=== PATIENT | female | born 1980 | race Caucasian/White ===

== ENCOUNTER 2020-09-01 02:38 | Emergency (ER) | payer OTHER, SELFPAY ==
[2020-09-01 02:55] VITALS: BP 105/71; PULSE 96; RESP 18; TEMP 36.4; O2SAT 98; BMI 22.4
[2020-09-01 03:01] VITALS: O2SAT 98
--- NOTE | 2020-09-01 03:22 | XRR_ITS ---
PROCEDURE INFORMATION: Exam: XR Chest, 1 View Exam date and time: 09/01/2020 3:01 AM Age: 40 years old Clinical indication: Shortness of breath; Patient HX: Covid symptoms, tested positive 08/30/20; Additional info: SOB TECHNIQUE: Imaging protocol: XR of the chest Views: Frontal portable upright view of the chest. COMPARISON: No relevant prior studies available. FINDINGS: Lungs: Mild pulmonary hyperexpansion. The lungs are otherwise peripherally clear bilaterally. The pulmonary vasculature is normal. Pleural space: No pleural effusion. No pneumothorax. Heart/Mediastinum: The heart is normal in size and contour. Bones/joints: No acute abnormality identified. XR/XR chest 1V portable [id number] IMPRESSION: Mild pulmonary hyperexpansion.
--- NOTE | 2020-09-01 03:29 | W.ED.COVID ---
HPI - COVID General: Chief Complaint: COVID symptoms Stated Complaint: covid symptoms, tested + yesterday Time Seen by Provider: 09/01/20 02:50 Triage information: Has fever, cough or shortness of breath. Exposure to COVID + person last 14 days History of Present Illness: HPI Narrative: 40-year-old female with 10 days of upper respiratory symptoms and some lower respiratory symptoms including shortness of breath. She tested positive for COVID-19 yesterday. She presents tonight after wearing her pulse ox while trying to go to sleep and noticing that it was in the low 80s while falling asleep. When she is awake, it comes up into the upper 90s. She has had fever on and off, with continued cough. Not productive. MD complaint: known COVID positive Prior covid testing: yes, results known COVID 19 common symptoms: positive fever(s), chills, cough, non-productive cough, dyspnea, fatigue and headache(s); negative vomiting COVID 19 other sytmptoms: positive chest pressure; negative chest pain, pleuritic pain or respiratory distress Onset (ago): hour(s) Severity: moderate Pertinent comorbid conditions: diabetes, hypertension, heart disease and COPD/respiratory disease COVID Results: No Data to Display Review of Systems Const: Reports: fever(s), chills and fatigue Card: Denies: chest pain Resp: Reports: dyspnea and non-productive cough GI: Denies: vomiting Neuro: Reports: headache(s) [facility] ED PFSH: Medical History (Updated 09/01/20 @ 05:56 by Gerardo Vital DO) No pertinent past medical history Family History Other Cancer Diabetes Social History (Updated 07/29/20 @ 08:40 by Niurka Cook LPN) Smoking and tobacco status: never smoked Alcohol intake: current Alcohol intake frequency: few times a month Physical Exam Const: COMMON NORMALS: no acute distress, patient oriented x3, healthy appearing and alert GENERAL APPEARANCE: cooperative and well developed HENMT: COMMON NORMALS: normocephalic and Normal external nose present HEAD & SCALP: normocephalic NOSE: Normal external nose present Eye: COMMON NORMALS: Equal, round and reactive pupils present and EOMs intact bilaterally PUPIL: Yes Equal, round and reactive pupils present Chest: COMMONS NORMALS: normal inspection of the chest Resp: COMMON NORMALS: normal respiratory effort, No retractions, No use of accessory muscles and clear to auscultation bilaterally AUSCULTATION: clear to auscultation bilaterally Cardio: COMMON NORMALS: regular rate, regular rhythm and No murmurs present (Cardio) RATE: regular rate RHYTHM: regular rhythm Neuro: COMMON NORMALS: patient oriented x3 SENSORIUM/ORIENTATION: Yes alert Course Vital Signs: Vital signs: Vital Signs Temperature 97.5 F L 09/01/20 02:55 Pulse Rate 87 09/01/20 03:42 Respiratory Rate 18 09/01/20 03:42 Blood Pressure 105/71 09/01/20 02:55 Pulse Oximetry 98 09/01/20 03:42 MDM - COVID MDM Narrative: Medical decision making narrative: 40-year-old female here short of breath. She was concerned as her oxygen saturations were evidently dropping at home to the low 80s while trying to sleep. She has been in the mid to upper 90s here on room air. She is not overly tachypneic. Her blood gas shows normal oxygenation with a slight respiratory alkalosis. Her white blood cell count is 2.1. Hemoglobin 13. Electrolytes are normal chest x-ray appeared normal. D-dimer was significantly elevated as well as some of her other inflammatory markers. CTA of the chest shows patchy groundglass opacities diffusely consistent with COVID-19. There is no pulmonary embolism. She will be allowed home. Because of the early opacities, she will be placed on dexamethasone. Lab Data: Labs: Lab Results 09/01/20 09/01/20 09/01/20 Range/Units 03:34 03:34 03:34 WBC 2.1 L (4.0-10.0) 10^3/ uL RBC 4.39 (4.1-5.3) 10^6/u L Hgb 13.1 (11.5-15.3) g/dL Hct 38.2 (37.0-47.0) % MCV 87.0 (81-99) fL MCH 29.8 (28.0-34.0) pg MCHC 34.3 (30.0-36.0) g/dL RDW 11.6 L (12.1-15.1) % Plt Count 134 (130-400) 10^3/c mm MPV 12.0 H (7.4-10.4) fL Neut % (Auto) 66.8 % Lymph % (Auto) 27.1 % [place] % (Auto) 5.6 % Eos % (Auto) 0.0 % Baso % (Auto) 0.5 % Neut # (Auto) 1.43 L (1.8-7.7) 10^3/u L Lymph # (Auto) 0.6 L (0.8-4.8) 10^3/u L [place] # (Auto) 0.1 L (0.2-0.9) 10^3/u L Eos # (Auto) 0.0 (0.0-0.8) 10^3/u L Baso # (Auto) 0.0 (0.0-0.1) 10^3/u L Nucleated RBC % (a uto) 0 % Nucleated RBCs # 0.0 /100WBC D-Dimer 1.50 H (0-0.59) ug/mIFE U Specimen Type Sample Site ABG pH (7.35-7.45) ABG pCO2 (35-45) mmHg ABG pO2 (80.0-100.0) mmH g ABG HCO3 (22-26) mmol/L ABG Base Excess (-2.0-2.0) mmol/ L Saroj Test Hematocrit (37-47) % Hgb O2 Saturation (95-100) % Carboxyhemoglobin (0.4-20.1) %THgb Methemoglobin (0.4-1.5) % Total Hemoglobin (12-16) g/dL O2 Delivery [employer] Sales Consultant ID Sodium 137 (136-145) mmol/L Potassium 3.6 (3.5-5.1) mmol/L Chloride 102 (98-107) mmol/L Carbon Dioxide 22 (22-29) mmol/L Anion Gap 16.6 (5-19) BUN 9 (6-20) mg/dL Creatinine 0.5 (0.5-0.9) mg/dL GFR Calculation 136.6 H (90-130) mL/min Glucose 153 H (65-115) mg/dL Calculated Osmolal ity 286 (285-295) mOsm/k g Lactic Acid (0.5-2.2) mmol/L Calcium 8.5 (8.5-10.5) mg/dL Total Bilirubin 0.4 (0.15-1.2) mg/dL AST 22 (0-32) U/L ALT 14 (0-33) U/L Alkaline Phosphata se 76 (35-105) IU/L Lactate Dehydrogen ase 242 H (135-214) U/L C-Reactive Protein 13.9 H (0.0-4.9) mg/L Total Protein 6.5 L (6.6-8.7) g/dL Albumin 3.8 (3.5-5.2) g/dL Globulin 2.7 (1.3-4.6) g/dL Procalcitonin 0.06 (0-0.5) ng/mL 09/01/20 09/01/20 Range/Units 03:34 04:20 WBC (4.0-10.0) 10^3/ uL RBC (4.1-5.3) 10^6/u L Hgb (11.5-15.3) g/dL Hct (37.0-47.0) % MCV (81-99) fL MCH (28.0-34.0) pg MCHC (30.0-36.0) g/dL RDW (12.1-15.1) % Plt Count (130-400) 10^3/c mm MPV (7.4-10.4) fL Neut % (Auto) % Lymph % (Auto) % [place] % (Auto) % Eos % (Auto) % Baso % (Auto) % Neut # (Auto) (1.8-7.7) 10^3/u L Lymph # (Auto) (0.8-4.8) 10^3/u L [place] # (Auto) (0.2-0.9) 10^3/u L Eos # (Auto) (0.0-0.8) 10^3/u L Baso # (Auto) (0.0-0.1) 10^3/u L Nucleated RBC % (a uto) % Nucleated RBCs # /100WBC D-Dimer (0-0.59) ug/mIFE U Specimen Type Arterial Sample Site Radial, right ABG pH 7.51 H (7.35-7.45) ABG pCO2 29.2 L (35-45) mmHg ABG pO2 83.1 (80.0-100.0) mmH g ABG HCO3 23.4 (22-26) mmol/L ABG Base Excess 1.2 (-2.0-2.0) mmol/ L Saroj Test Pos Hematocrit 39.5 (37-47) % Hgb O2 Saturation 96.2 (95-100) % Carboxyhemoglobin 0.3 L (0.4-20.1) %THgb Methemoglobin 0.9 (0.4-1.5) % Total Hemoglobin 12.9 (12-16) g/dL O2 Delivery Device room air Solutions Sales Consultant ID ellpe Sodium (136-145) mmol/L Potassium (3.5-5.1) mmol/L Chloride (98-107) mmol/L Carbon Dioxide (22-29) mmol/L Anion Gap (5-19) BUN (6-20) mg/dL Creatinine (0.5-0.9) mg/dL GFR Calculation (90-130) mL/min Glucose (65-115) mg/dL Calculated Osmolal ity (285-295) mOsm/k g Lactic Acid 1.1 (0.5-2.2) mmol/L Calcium (8.5-10.5) mg/dL Total Bilirubin (0.15-1.2) mg/dL AST (0-32) U/L ALT (0-33) U/L Alkaline Phosphata se (35-105) IU/L Lactate Dehydrogen ase (135-214) U/L C-Reactive Protein (0.0-4.9) mg/L Total Protein (6.6-8.7) g/dL Albumin (3.5-5.2) g/dL Globulin (1.3-4.6) g/dL Procalcitonin (0-0.5) ng/mL COVID Results: No Data to Display Discharge Plan Discharge Patient Disposition: Home Clinical Impression: Pneumonia due to 2019 novel coronavirus Condition: Stable Prescriptions: New dexamethasone 6 mg tablet 6 mg PO DAILY Qty: 5 RF: 0 albuterol sulfate 90 mcg/actuation HFA aerosol inhaler 2 inh inhalation Q6H PRN (Reason: shortness of breath or wheezing) Qty: 6.7 RF: 0 Discharge Orders: Discharge ED (Routine); Ordered 09/01/20 Ordered By: Gerardo Vital Referrals: Matthias Wang DO [Primary Care Provider] - 1-3 days Discharge Diet: Advance as tolerated Discharge Activity: Limit activity as instructed Patient Instructions: Viral Pneumonia (ED) Activity Restrictions/Additional Instructions: Return for worsening shortness of breath despite treatment, inability to control fever, vomiting liquids or medications, other concerning symptoms. 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
[2020-09-01 03:42] VITALS: PULSE 87; RESP 18; O2SAT 98
[2020-09-01 03:52] LABS: Basophils % 0.5 %; Hematocrit 38.2 % (37.0-47.0); Hemoglobin 13.1 g/dL (11.5-15.3); Lymphocytes # 0.6 10^3/uL (0.8-4.8); Lymphocytes % 27.1 %; Mean Corpuscular HGB Conc 34.3 g/dL (30.0-36.0); Mean Corpuscular Hemoglobin 29.8 pg (28.0-34.0); Monocytes # 0.1 10^3/uL (0.2-0.9); Monocytes % 5.6 %; Neutrophils # 1.43 10^3/uL (1.8-7.7); Neutrophils % 66.8 %; Nucleated Red Blood Cells % 0 %; Platelet Count 134 10^3/cmm (130-400); Red Blood Count 4.39 10^6/uL (4.1-5.3); Red Cell Distribution Width 11.6 % (12.1-15.1); White Blood Count 2.1 10^3/uL (4.0-10.0)
[2020-09-01 04:14] LABS: Lactic Sepsis W/Reflex 1.1 mmol/L (0.5-2.2)
--- NOTE | 2020-09-01 04:21 | CTR_ITS ---
PROCEDURE INFORMATION: Exam: CT Angiography Chest With Contrast Exam date and time: 09/01/2020 4:54 AM Age: 40 years old Clinical indication: Dyspnea; Patient HX: Covid +; Additional info: SOB TECHNIQUE: Imaging protocol: Computed tomographic angiography of the chest with intravenous contrast. 3D rendering (Not supervised by radiologist): MIP and/or 3D reconstructed images were created by the technologist. Radiation optimization: All CT scans at this facility use at least one of these dose optimization techniques: automated exposure control; mA and/or kV adjustment per patient size (includes targeted exams where dose is matched to clinical indication); or iterative reconstruction. Contrast material: OMNI 350; Contrast volume: 95 ml; Contrast route: INTRAVENOUS (IV); COMPARISON: CR XR chest 1V portable [id number] 09/01/2020 3:24 AM RADIATION DOSE METRICS: Total DLP (mGy-cm): 472.55 FINDINGS: Pulmonary arteries: Normal. No pulmonary emboli. Aorta: Unremarkable. No aortic aneurysm. No aortic dissection. Lungs: There are peripheral patchy ground-glass opacities present within the hemithoraces, findings suggesting a bilateral interstitial pneumonia. Pleural space: Unremarkable. No pneumothorax. No pleural effusion. Heart: Unremarkable. No cardiomegaly. No pericardial effusion. Lymph nodes: Unremarkable. No enlarged lymph nodes. Bones/joints: Unremarkable. No acute fracture. Soft tissues: Unremarkable. CT/CT angio chest PE protcl [id number] IMPRESSION: 1. There is no evidence for pulmonary emboli. 2. Patchy peripheral ground-glass opacities present within the hemithoraces compatible with a bilateral interstitial pneumonia. Commonly reported imaging features of COVID-19 pneumonia are present. Other processes such as influenza pneumonia and organizing pneumonia, as can be seen with drug toxicity and connective tissue disease, can cause a similar imaging pattern. (Reference: Yanick) REFERENCES: Yanick Ordoñez, et al., Radiological Society of [place] Expert Consensus Statement on Reporting Chest CT Findings Related to COVID-19. Endorsed by the Society of Thoracic Radiology, the [place] [employer], and RSNA. Published November 14, 2019. Radiation Dose CTDIVOL = (mGy): DLP = 472.55 (mGy-cm)
[2020-09-01 04:23] LABS: Procalcitonin 0.06 ng/mL (0-0.5)
[2020-09-01 04:25] LABS: ABG PCO2 29.2 mmHg (35-45); ABG PH Result 7.51 (7.35-7.45); Arterial Blood Gas Hematocrit 39.5 % (37-47); Base Excess ABG 1.2 mmol/L (-2.0-2.0); Blood Gas Allen Test Pos; Blood Gas Sample Site Radial, right; Blood Gas Sample Type Arterial; Carboxyhemoglobin 0.3 %THgb (0.4-20.1); HCO3 ABG 23.4 mmol/L (22-26); HGB O2 Sat 96.2 % (95-100); Methemoglobin 0.9 % (0.4-1.5); PO2 ABG 83.1 mmHg (80.0-100.0); Total Hemoglobin 12.9 g/dL (12-16)
[2020-09-01 04:30] LABS: Slide Review Slide Review Perform
[2020-09-01 04:35] LABS: Alanine Aminotransferase 14 U/L (0-33); Albumin Level 3.8 g/dL (3.5-5.2); Alkaline Phosphatase 76 IU/L (35-105); Anion Gap 16.6 (5-19); Aspartate Amino Transferase 22 U/L (0-32); Blood Urea Nitrogen 9 mg/dL (6-20); C Reactive Protein 13.9 mg/L (0.0-4.9); Calcium 8.5 mg/dL (8.5-10.5); Carbon Dioxide 22 mmol/L (22-29); Chloride 102 mmol/L (98-107); Creatinine Clr Calc Pharmacy 138.5831; Globulin 2.7 g/dL (1.3-4.6); Glomerular Filtration Rate 136.6 mL/min (90-130); Glucose 153 mg/dL (65-115); Lactate Dehydrogenase 242 U/L (135-214); Osmolality Calculated 286 mOsm/kg (285-295); Potassium 3.6 mmol/L (3.5-5.1); Sodium 137 mmol/L (136-145); Total Bilirubin 0.4 mg/dL (0.15-1.2); Total Protein 6.5 g/dL (6.6-8.7)
[2020-09-01 04:58] LABS: Oxygen Device room air
[2020-09-01] MEDS: iohexol 350 mg/mL 100 mL Btl IV (04:58)
[2020-09-01] MEDS: dexamethasone 4 mg/mL INJ 8 MG IVP (06:05)
[2020-09-01 06:11] VITALS: BP 110/72; PULSE 85; RESP 18; O2SAT 96
== END 2020-09-01 06:12 | disposition home or self-care (01) ==
PROVIDERS: Emergency Provider Emergency Medicine; PCP Electrodiagnostic Medicine
DX: U07.1 COVID-19 (principal); J12.82 Pneumonia due to coronavirus disease 2019
CPT/HCPCS: 12345; 36600; 71045; 71275; 80053; 82805; 83605; 83615; 84145; 85025; 85378; 86140; 96374; 99283; 99284; J1100; Q9967

== ENCOUNTER 2020-10-06 10:54 | Outpatient (CLI) | payer OTHER, SELFPAY ==
[2020-10-06 11:13] LABS: Basophils % 0.4 %; Eosinophils % 0.2 %; Hematocrit 38.4 % (37.0-47.0); Lymphocytes # 1.5 10^3/uL (0.8-4.8); Mean Corpuscular HGB Conc 33.9 g/dL (30.0-36.0); Mean Corpuscular Hemoglobin 30.1 pg (28.0-34.0); Mean Corpuscular Volume 88.9 fL (81-99); Mean Platelet Volume 11.6 fL (7.4-10.4); Monocytes # 0.4 10^3/uL (0.2-0.9); Monocytes % 4.4 %; Neutrophils # 7.52 10^3/uL (1.8-7.7); Neutrophils % 78.8 %; Nucleated Red Blood Cells % 0 %; Platelet Count 246 10^3/cmm (130-400); Red Blood Count 4.32 10^6/uL (4.1-5.3); Red Cell Distribution Width 12.4 % (12.1-15.1); White Blood Count 9.6 10^3/uL (4.0-10.0)
[2020-10-06 11:30] LABS: Alanine Aminotransferase 10 U/L (0-33); Albumin Level 4.6 g/dL (3.5-5.2); Alkaline Phosphatase 55 IU/L (35-105); Anion Gap 15.4 (5-19); Aspartate Amino Transferase 14 U/L (0-32); Blood Urea Nitrogen 13 mg/dL (6-20); C Reactive Protein 0.3 mg/L (0.0-4.9); Calcium 9.5 mg/dL (8.5-10.5); Carbon Dioxide 24 mmol/L (22-29); Chloride 104 mmol/L (98-107); Globulin 2.1 g/dL (1.3-4.6); Glomerular Filtration Rate 110.7 mL/min (90-130); Glucose 84 mg/dL (65-115); Osmolality Calculated 287 mOsm/kg (285-295); Potassium 4.4 mmol/L (3.5-5.1); Sodium 139 mmol/L (136-145); Total Bilirubin 0.5 mg/dL (0.15-1.2); Total Protein 6.7 g/dL (6.6-8.7)
[2020-10-06 12:03] LABS: Thyroid Stimulating Hormone 3.43 uIU/mL (0.27-4.20)
== END 2020-10-06 10:55 | disposition home or self-care (01) ==
LOC: LAB 10:55
PROVIDERS: PCP Electrodiagnostic Medicine; Visit Provider Electrodiagnostic Medicine
DX: R07.9 Chest pain, unspecified (principal); R06.02 Shortness of breath; U07.1 COVID-19
CPT/HCPCS: 80053; 84443; 85025; 86140

== ENCOUNTER 2020-12-19 11:24 | Outpatient (CLI) | payer BC, MEDICAID, SELFPAY ==
--- NOTE | 2020-12-19 11:31 | US_ITS ---
WS: [id number] LIMITED OBSTETRICAL ULTRASOUND HISTORY: COMPARISON: None available. Presentation: Breech. Cervix: Closed and normal length. Placenta: Posterior, no previa or abruption. Grade: 0 HEART: FHR of 131 BPM. measurements: BPD = 3.0 cm = 15w4d HC = 11.4 cm = 15w4d AC = 9.3 cm = 15w3d FL = 1.9 cm = 15w4d EFW: 128 g; AGA by ultrasound: 15w4d WHITNEY by ultrasound: 06/08/2021 US/US OB <= 14 weeks fetus [id number] IMPRESSION: 1. Single intrauterine gestation of 15 weeks 4 days with an EDC of 06/08/2021. 2. Posterior placenta.
== END 2020-12-19 11:25 | disposition home or self-care (01) ==
LOC: US 11:25
PROVIDERS: PCP Electrodiagnostic Medicine; Visit Provider Electrodiagnostic Medicine
DX: Z34.92 Encounter for supervision of normal pregnancy, unspecified, second trimester (principal); Z3A.15 15 weeks gestation of pregnancy
CPT/HCPCS: 76801

== ENCOUNTER → 2020-12-26 09:19 | Outpatient (BNVA) | payer BC, MEDICAID, SELFPAY | PROVIDERS: PCP Electrodiagnostic Medicine; Visit Provider Nurse Practitioner Women's Health | DX: O09.522 Supervision of elderly multigravida, second trimester (principal); Z87.59 Personal history of other complications of pregnancy, childbirth and the puerperium; I86.3 Vulval varices | CPT/HCPCS: 81000 ==

== ENCOUNTER → 2021-01-02 13:53 | Outpatient (BNVA) | payer BC, MEDICAID, SELFPAY | PROVIDERS: PCP Electrodiagnostic Medicine; Visit Provider Obstetrics & Gynecology | DX: O09.522 Supervision of elderly multigravida, second trimester (principal); Z87.59 Personal history of other complications of pregnancy, childbirth and the puerperium; I86.3 Vulval varices | CPT/HCPCS: 80307; 81000; 82950; 85027; 86592; 86762; 86803; 86850; 86900; 87086; 87340; 87491; 87591; 87806; 88175 ==

== ENCOUNTER → 2021-01-22 14:35 | Outpatient (BNVA) | payer BC, MEDICAID, SELFPAY | PROVIDERS: PCP Electrodiagnostic Medicine; Visit Provider Obstetrics & Gynecology | DX: Z34.92 Encounter for supervision of normal pregnancy, unspecified, second trimester (principal); Z3A.20 20 weeks gestation of pregnancy | CPT/HCPCS: 76805 ==

== ENCOUNTER → 2021-01-27 10:13 | Outpatient (BNVA) | payer BC, MEDICAID, SELFPAY | PROVIDERS: PCP Electrodiagnostic Medicine; Visit Provider Obstetrics & Gynecology | DX: Z34.80 Encounter for supervision of other normal pregnancy, unspecified trimester (principal) | CPT/HCPCS: 81000 ==

== ENCOUNTER → 2021-02-24 09:55 | Outpatient (BNVA) | payer BC, MEDICAID, SELFPAY | PROVIDERS: PCP Electrodiagnostic Medicine; Visit Provider Nurse Practitioner Women's Health | DX: O09.522 Supervision of elderly multigravida, second trimester (principal); Z87.59 Personal history of other complications of pregnancy, childbirth and the puerperium; Z3A.00 Weeks of gestation of pregnancy not specified | CPT/HCPCS: 81000; 82950 ==

== ENCOUNTER → 2021-03-17 09:51 | Outpatient (BNVA) | payer BC, MEDICAID, SELFPAY | PROVIDERS: PCP Electrodiagnostic Medicine; Visit Provider Obstetrics & Gynecology | DX: O09.522 Supervision of elderly multigravida, second trimester (principal); I86.3 Vulval varices; Z87.59 Personal history of other complications of pregnancy, childbirth and the puerperium | CPT/HCPCS: 81000; 85025 ==

== ENCOUNTER → 2021-03-31 10:28 | Outpatient (BNVA) | payer BC, MEDICAID, SELFPAY | PROVIDERS: PCP Electrodiagnostic Medicine; Visit Provider Obstetrics & Gynecology | DX: Z34.80 Encounter for supervision of other normal pregnancy, unspecified trimester (principal) | CPT/HCPCS: 81000 ==

== ENCOUNTER → 2021-04-14 09:16 | Outpatient (BNVA) | payer BC, MEDICAID, SELFPAY | PROVIDERS: PCP Electrodiagnostic Medicine; Visit Provider Obstetrics & Gynecology | DX: Z34.80 Encounter for supervision of other normal pregnancy, unspecified trimester (principal) | CPT/HCPCS: 81000 ==

== ENCOUNTER → 2021-05-01 15:54 | Outpatient (BNVA) | payer BC, MEDICAID, SELFPAY | PROVIDERS: PCP Electrodiagnostic Medicine; Visit Provider Obstetrics & Gynecology | DX: Z34.80 Encounter for supervision of other normal pregnancy, unspecified trimester (principal) | CPT/HCPCS: 81000 ==

== ENCOUNTER → 2021-05-12 10:49 | Outpatient (BNVA) | payer BC, MEDICAID, SELFPAY | PROVIDERS: PCP Electrodiagnostic Medicine; Visit Provider Obstetrics & Gynecology | DX: Z34.80 Encounter for supervision of other normal pregnancy, unspecified trimester (principal) | CPT/HCPCS: 81000; 87081 ==

== ENCOUNTER → 2021-05-18 11:18 | Outpatient (BNVA) | payer BC, MEDICAID, SELFPAY | PROVIDERS: PCP Electrodiagnostic Medicine; Visit Provider Obstetrics & Gynecology | DX: Z34.80 Encounter for supervision of other normal pregnancy, unspecified trimester (principal) | CPT/HCPCS: 81000 ==

== ENCOUNTER → 2021-05-25 11:04 | Outpatient (BNVA) | payer BC, MEDICAID, SELFPAY | PROVIDERS: PCP Electrodiagnostic Medicine; Visit Provider Obstetrics & Gynecology | DX: Z34.80 Encounter for supervision of other normal pregnancy, unspecified trimester (principal) | CPT/HCPCS: 81000 ==

== ENCOUNTER → 2021-06-01 11:00 | Outpatient (BNVA) | payer BC, MEDICAID, SELFPAY | PROVIDERS: PCP Electrodiagnostic Medicine; Visit Provider Obstetrics & Gynecology | DX: Z34.80 Encounter for supervision of other normal pregnancy, unspecified trimester (principal) | CPT/HCPCS: 81000 ==

== ENCOUNTER → 2021-06-08 11:04 | Outpatient (BNVA) | payer BC, MEDICAID, SELFPAY | PROVIDERS: PCP Electrodiagnostic Medicine; Visit Provider Obstetrics & Gynecology | DX: O48.0 Post-term pregnancy (principal); I86.3 Vulval varices; Z87.59 Personal history of other complications of pregnancy, childbirth and the puerperium; O09.522 Supervision of elderly multigravida, second trimester; O40.3XX0 Polyhydramnios, third trimester, not applicable or unspecified | CPT/HCPCS: 81000; 87635 ==

== ENCOUNTER 2021-06-12 16:41 | Inpatient (IN) | payer BC, MEDICAID, SELFPAY ==
[2021-06-12] VITALS (14 sets, daily range): BP systolic 93–120; BP diastolic 51–76; PULSE 67–81; TEMP 37; BMI 31.7
[2021-06-12 17:43] LABS: Basophils % 0.3 %; Eosinophils # 0.1 10^3/uL (0.0-0.8); Hematocrit 37.5 % (37.0-47.0); Hemoglobin 12.8 g/dL (11.5-15.3); Lymphocytes % 25.5 %; Mean Corpuscular HGB Conc 34.1 g/dL (30.0-36.0); Mean Corpuscular Hemoglobin 30.8 pg (28.0-34.0); Mean Corpuscular Volume 90.1 fl (81-99); Mean Platelet Volume 13.1 fL (7.4-10.4); Monocytes # 0.5 10^3/uL (0.2-0.9); Monocytes % 6.4 %; Neutrophils # 5.07 10^3/uL (1.8-7.7); Neutrophils % 66.4 %; Nucleated Red Blood Cells % 0 %; Platelet Count 140 10^3/cmm (130-400); Red Blood Count 4.16 10^6/uL (4.1-5.3); Red Cell Distribution Width 12.8 % (12.1-15.1); White Blood Count 7.6 10^3/uL (4.0-10.0)
[2021-06-12] MEDS: dextrose 5%-lactated ringers 1,000 ML 125 ML IV (18:07)
--- NOTE | 2021-06-12 18:15 | PM.OPHPUD ---
Labor & Delivery H&P Update Date of Procedure: June 12, 2021 Date H&P Performed: 06/12/21 H&P update information: I have reviewed H&P completed within last 30 days, I have examined patient prior to procedure and No changes to prior documentation Admission Diagnosis:
--- NOTE | 2021-06-12 18:16 | P.PN_ITS ---
Subjective Subjective: Interval history: Mrs. Stafford 41 y/o female at 40+6 weeks with polyhydramnios, breech presentation. Admited for external cephalic version and induction. Vitals/I&O/Wt Last Vital Signs Temp 98.6 F 06/12/21 17:04 Pulse 68 06/12/21 17:58 BP 116/63 06/12/21 17:58 Weight last 48 hrs Weight 83.915 kg Physical Exam Narrative: EXAM NARRATIVE: GA: Alert and oriented ?3. Lungs: Clear to auscultation bilaterally. Heart: Regular rhythm and rate. Abdomen: Gravid, full the height equals dates, nontender. MARKETING PR INTERN: SVE; dilation: 4 cm, effacement: 60%, station: -4, presentation: vx, membranes: IM. Extremities: no edema, no cyanosis, no calves pain. heart tracing: Basal rate: 140's bpm, Variability: Moderate, Accelerations: Present, Decelerations: Absent, Contraction: q3min. NST reactive. Data : 06/12/21 17:10 A&P Assessment and plan (1) Term : Mrs. Stafford and were counseled regarding breech presentation noted on the ultrasound during biophysical profile performed earlier today. She was also counseled regarding external cephalic version vs delivery. She elected for external cephalic version. She was counseled external cephalic version is a simple, non-invasive procedure performed when a fetus is not positioned optimally for vaginal delivery. An induction to oxytocin recommended to maximize the chance that the repositioned fetus will not flip back to its original position. Risks include, but are not limited to: Infection, bleeding, swelling, scarring, or pain at the IV insertion site. Discomfort as the baby is being rotated. Damage to the fetus or surrounding area. The fetus may revert to its original position or version may not be successful. Labor caused by rupture of the membranes. Emergency delivery due to distress. She refers she does not want have a section and signed the informed consent. She was informed an ultrasound examination will be performed to confirm the position of the baby and that the amount of fluid around the baby is such that ECV is as safe as possible and a recording of the baby's heart rate, an injection to relax the muscle of the womb may be given, making it easier to turn the baby if needed. The patient was placed in the supine position, an NST was obtained and reactive. The abdomen was liberally coated with ultrasonic gel in order to decrease friction and lessen the chances of an overvigorous manipulation. Gentle disengagement performed. A Forward Roll was performed: Disengage the breech. The breech should be disengaged and simultaneously pushed upward, gently guiding it vertex toward the pelvis. The forward roll completed. Status: Acute (2) Breech presentation: Successful external version. Status: Acute (3) Polyhydramnios affecting in third trimester: Status: Acute Attestations Medical Necessity Statement*: In my professional opinion per admitting diagnosis. Coding Level of Care Code Acute Hand Bender for [facility] Fwd Diagnoses Term Z34.90 Breech presentation O32.1XX0 Polyhydramnios affecting in third trimester O40.3XX0
[2021-06-12] MEDS: oxytocin 30 UNIT/500 ML BAG IV (18:30)
--- NOTE | 2021-06-12 21:35 | USR_ITS ---
PROCEDURE INFORMATION: Exam: US , Limited Exam date and time: 06/12/2021 9:35 PM Age: 41 years old Clinical indication: Screening exam; Routine US, uterus; Additional info: presentation TECHNIQUE: Imaging protocol: Real-time ultrasound of the maternal uterus with image documentation. Exam focused on the clinical indication. COMPARISON: US OB BPP w NST CC 06/12/2021 12:31 PM FINDINGS: Gestation: Single intrauterine gestation. presentation: Cephalic presentation. heart rate: heart rate is 129 bpm. Placenta: Anterior placenta. No placenta previa. No placental abruption. US/US OB limited [id number] IMPRESSION: Single live cephalic presentation intrauterine gestation. Radiation Dose CTDIVOL = (mGy): DLP = (mGy-cm)
[2021-06-13] VITALS (28 sets, daily range): BP systolic 85–120; BP diastolic 50–78; PULSE 60–93; RESP 16–18; TEMP 36.5–37.2; O2SAT 95
[2021-06-13] MEDS: dextrose 5%-lactated ringers 1,000 ML 125 ML IV (02:08)
[2021-06-13] MEDS: lidocaine 2% INJ 20 mL INJECTION (14:00)
--- NOTE | 2021-06-13 14:14 | PM.DELIVERY ---
Delivery Note: Date of delivery: June 13, 2021 Pre-delivery diagnoses: iup at 41 weeks. cephalic presentation Post-delivery diagnoses: same-delivered Procedure: Op report anesthesia: None Delivering Physician: edward Estimated blood loss (mL): 20 Findings: Large term male in the cephalic presentation Pre-Delivery Course: The patient was admitted for external cephalic version and induction. The version was successful and pitocin was started. The patient received pitocin overnight and in the morning, she was dilated to 4 cm but had 80% efacement and the head was well applied to the cervix. She had AROM and the pitocin was stopped. The amniotic fluid slowly leaked and she was allowed to labor naturally. She had complete cervical dilation and began pushing Delivery: The patient had complete cervical dilation and began to push. The head delivered in the ANTOLIN position over an intact perineum under no anesthesia. The head was large and I immediately moved to deliver the shoulders and body. They delivered atraumatically. The baby was placed onto the mother's abdomen. The cord was clamped and cut. The placenta delivered spontaneously. It was inspected and found to be intact. Inspection of the perineum revealed a 1 cm second-degree laceration. This was repaired in the usual fashion.. Estimated blood loss 20 mL. Apgars on baby were 8 at 1 minute and 9 at 5 minutes. Weight of baby is ending. Mother and baby were bonding. Mother and baby were stable post delivery. A&P Assessment and plan (1) Term : Status: Acute (2) Breech presentation: Status: Acute (3) Polyhydramnios affecting in third trimester: Status: Acute Coding Level of Care Code Acute Home Worker for Chg Fwd Diagnoses Term Z34.90 Breech presentation O32.1XX0 Polyhydramnios affecting in third trimester O40.3XX0
[2021-06-13] MEDS: docusate sodium 100 mg Capsule PO (18:38)
[2021-06-13] MEDS: benzocaine-menthol 78 gm Canister 1 SPRAY TOPICAL (18:38)
[2021-06-13] MEDS: ibuprofen 800 mg tablet PO (21:18)
[2021-06-14] VITALS: BP 101/64; PULSE 80; RESP 16; TEMP 36.7
[2021-06-14 05:20] VITALS: BP 95/58; PULSE 90; RESP 16
--- NOTE | 2021-06-14 05:30 | PM.DCS ---
Discharge Providers Date of Admission: 06/12/21 16:41 Date of Discharge: June 14, 2021 Attending Provider at Admission: Benny Sandoval MD Attending Provider at Discharge: Benny Sandoval MD Primary Care Provider: Matthias Wang DO Diagnoses at Discharge Discharge Diagnosis (1) Term : Status: Resolved (2) Breech presentation: Status: Resolved (3) Polyhydramnios affecting in third trimester: Status: Resolved (4) state: Status: Acute Reason for Visit Reason for Visit: VERSION Hospital Course Hospital Course The patient was admitted for external cephalic version. The version was successful. She had induction after that. She had spontaneous delivery of a term male . She did well post and requested discharge on post day #1 Physical Exam Const: COMMON NORMALS: no acute distress, average body habitus, patient oriented x3, no limitations, healthy appearing and alert GENERAL APPEARANCE: cooperative, comfortable, well kempt and well developed ORIENTATION/CONSCIOUSNESS: Yes awake, Yes oriented to person, Yes oriented to place and Yes oriented to time Resp: COMMON NORMALS: normal respiratory effort EFFORT & INSPECTION: Yes able to speak in complete sentences GI: COMMON NORMALS: Soft to palpation and non-tender PALPATION: Yes Soft to palpation Extremity: COMMON NORMALS: no calf tenderness Neuro: COMMON NORMALS: patient oriented x3 SENSORIUM/ORIENTATION: Yes alert, Yes oriented to person, Yes oriented to place and Yes oriented to time Psych: APPEARANCE: Yes well kempt Discharge Data Data Completed and Pending: Completed Studies During Hospitalization Category Date Time Status US OB limited [id number] Routine Ultrasound 06/12/21 21:35 Completed Pending at discharge Category Date Time Status Hemagram Timed Lab 06/14/21 05:29 Ordered Vitals: Last Vital Signs Temp 98.0 F 06/13/21 17:00 Pulse 93 06/13/21 18:00 Resp 16 06/13/21 18:00 BP 106/71 06/13/21 18:00 Pulse Ox 95 06/13/21 16:30 Discharge Plan Discharge Patient Disposition: Home Condition: Stable Prescriptions: Continued prenat.vits,kacey,[id number] Tablet 1 tab PO DAILY RF: 0 aspirin 81 mg tablet,chewable 81 mg PO DAILY RF: 0 Discharge Orders: Discharge Order (Routine); Ordered 06/14/21 Ordered By: Shawnee Soares Referrals: Benny Sandoval MD [Physician] - 6 Weeks Patient Instructions: Depression (DC), Expression, Collection and Storage of Breast Milk (DC), Bleeding (DC), Preeclampsia and Eclampsia After Delivery (GEN), OB Discharge Report, OB Food/Drug Interaction Guide, Opioid Safety, OB Home Care, OB Vaginal Deliveries - [facility] Discharge Attestations Time Spent in Discharge Care*: less than 30 min Quality Metrics Clinical Quality Measures During this hospital stay, did patient experience: None Coding Level of Care Code Acute Chg FW DC note Exam Expanded Problem Focused Diagnoses Term Z34.90 Breech presentation O32.1XX0 Polyhydramnios affecting in third trimester O40.3XX0 state Z39.2
[2021-06-14 06:00] LABS: Hematocrit 36.2 % (37.0-47.0); Hemoglobin 12.2 g/dL (11.5-15.3); Mean Corpuscular HGB Conc 33.7 g/dL (30.0-36.0); Mean Corpuscular Volume 92.1 fl (81-99); Mean Platelet Volume 12.7 fL (7.4-10.4); Platelet Count 120 10^3/cmm (130-400); Red Blood Count 3.93 10^6/uL (4.1-5.3); White Blood Count 13.2 10^3/uL (4.0-10.0)
[2021-06-14] MEDS: ibuprofen 800 mg tablet PO (08:30)
[2021-06-14] MEDS: prenatal vitamin Capsule 1 CAP PO (08:30)
[2021-06-14] MEDS: docusate sodium 100 mg Capsule PO (08:30)
[2021-06-14 08:39] VITALS: BP 103/66; PULSE 73; RESP 14; TEMP 36.8; O2SAT 96
[2021-06-14 15:55] VITALS: BP 119/74; PULSE 63; RESP 16; TEMP 36.8; O2SAT 95
== END 2021-06-14 16:00 | disposition home or self-care (01) | DRG 806 ==
LOC: OPOB 16:48 → OBGYN 16:49 → OPOB 06-13 09:38 → OBGYN 06-13 09:38
PROVIDERS: Obstetrics & Gynecology; Admitting Provider Obstetrics & Gynecology; PCP Electrodiagnostic Medicine; Visit Provider Obstetrics & Gynecology
DX: O41.03X0 Oligohydramnios, third trimester, not applicable or unspecified (principal); O87.8 Other venous complications in the puerperium; Z37.0 Single live birth; O32.1XX0 Maternal care for breech presentation, not applicable or unspecified; O70.1 Second degree perineal laceration during delivery; Z3A.40 40 weeks gestation of pregnancy
CPT/HCPCS: 36415; 59025; 59409; 59412; 76815; 81000; 85025; 85027

== ENCOUNTER 2021-08-10 09:23 | Emergency (ER) | payer BC, MEDICAID, SELFPAY ==
[2021-08-10 09:41] VITALS: BP 122/81; PULSE 77; RESP 16; TEMP 36.7; O2SAT 98; BMI 25.7
--- NOTE | 2021-08-10 10:03 | ECG_ITS ---
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
--- NOTE | 2021-08-10 10:09 | ED_ITS ---
HPI - Arrhythmia/Palpitations General: Chief Complaint: Arrhythmia/Palpitations Stated Complaint: dizziness, gretchen sensation is arm, SOB Time Seen by Provider: 08/10/21 09:45 History of Present Illness: HPI narrative: 41-year-old female presents emergency room complaining of shortness of breath and palpitations. This began overnight states she woke up feeling dizzy lightheaded she did have numbness and tingling in both arms intermittently. Had a similar episode a couple of days ago it seemed to resolve on its own. She is not on any prescription medications that she is not been taking any regular ppyi-[id number]-[id number] medication she does take an 81 mg aspirin daily and vitamins neither of those are new. She has no history of arrhythmias. She is not use large amounts of caffeine energy drinks etc. MD complaint: rapid heart beat and palpitations Onset (ago): hour(s) Severity: mild Associated symptoms: Reports anxiety; Deny cough, diaphoresis, muscle cramps, nausea, paresthesias, pre-syncope, sense of impending doom, short of breath, syncope or vomiting Review of Systems Const: Denies: diaphoresis ENMT: Denies: throat pain, ear or mastoid pain, nasal discharge or nasal congestion Card: Denies: syncope or pre-syncope Resp: Denies: dyspnea, productive cough or non-productive cough GI: Denies: nausea or vomiting : Denies: flank pain, difficulty voiding, dysuria, urinary frequency or urinary urgency Musc: Denies: muscle cramps Skin/Breast: Denies: rash or pruritus Psych: Reports: anxiety [facility] ED PFSH: Medical History No pertinent past medical history Denies diabetes, asthma, hypertension, seizures, DVT/PE PCP: Bebeto Wang Pneumonia due to 2019 novel coronavirus Surgical History History of dental surgery Family History Family/Other Breast cancer, Onset Age: 65 Paternal Aunt Mother Hypertension Diabetes Grandfather Cancer Maternal and Paternal--prostate cancer Denies family history of Ovarian cancer Heart disease Hypercholesteremia Uterine cancer Thyroid disease Stroke Social History (Reviewed 08/10/21 @ 10:10 by JAIDEN Marquez Smoking and tobacco status: never smoked Alcohol intake: former Former alcohol use details: prior to Physical Exam Const: COMMON NORMALS: no acute distress GENERAL APPEARANCE: cooperative and comfortable ORIENTATION/CONSCIOUSNESS: Yes awake, Yes oriented to person, Yes oriented to place and Yes oriented to time HENMT: COMMON NORMALS: normocephalic, atraumatic and hearing grossly normal bilaterally HEAD & SCALP: normocephalic and atraumatic Neck/C-Spine: COMMON NORMALS: no JVD Resp: COMMON NORMALS: normal respiratory effort, No retractions, No use of accessory muscles and clear to auscultation bilaterally AUSCULTATION: clear to auscultation bilaterally Cardio: COMMON NORMALS: no JVD, regular rate, regular rhythm and No murmurs present (Cardio) RATE: regular rate RHYTHM: regular rhythm GI: COMMON NORMALS: Soft to palpation and No hepatosplenomegaly present AUSCULTATION: Yes normoactive bowel sounds PALPATION: Yes Soft to palpation, No Tenderness to palpation present (GI), No Guarding due to palpation present (GI) and Yes No hepatosplenomegaly present Extremity: COMMON NORMALS: normal to inspection, capillary refill normal, no clubbing, cyanosis or edema, no calf tenderness and no pedal edema Neuro: SENSORIUM/ORIENTATION: Yes oriented to person, Yes oriented to place and Yes oriented to time Skin: COMMON NORMALS: no rashes or lesions noted GENERAL SKIN EXAM: no rashes or lesions noted Course Vital Signs: Vital signs: Vital Signs Temperature 98.1 F 08/10/21 09:41 Pulse Rate 77 08/10/21 09:41 Respiratory Rate 16 08/10/21 09:41 Blood Pressure 122/81 08/10/21 09:41 Pulse Oximetry 98 08/10/21 09:41 MDM - Arrhythmia/Palpitations MDM Narrative: Medical decision making narrative: Patient palpitations this time but no findings EKG lab and x-ray reviewed. Discussed with patient will discharge her home on same medications for now avoid stimulants such as caffeine nicotine energy drinks etc. We will set her up for a Holter monitor if she has any recurrence recurrence or worsening or changes symptoms return to emergency room Lab Data: Labs: Lab Results 08/10/21 08/10/21 10:51 10:51 WBC 6.3 10^3/uL 10^3/ uL (4.0-10.0) RBC 4.97 10^6/uL 10^6 /uL (4.1-5.3) Hgb 14.7 g/dL g/dL (11.5-15.3) Hct 43.3 % % (37.0-47.0) MCV 87.1 fl fl (81-99) MCH 29.6 pg pg (28.0-34.0) MCHC 33.9 g/dL g/dL (30.0-36.0) RDW 11.4 % L % (12.1-15.1) Plt Count 220 10^3/cmm 10^3 /cmm (130-400) MPV 11.4 fL H fL (7.4-10.4) Neut % (Auto) 66.5 % % Lymph % (Auto) 27.2 % % [place] % (Auto) 4.9 % % Eos % (Auto) 0.9 % % Baso % (Auto) 0.3 % % Neut # (Auto) 4.21 10^3/uL 10^3 /uL (1.8-7.7) Lymph # (Auto) 1.7 10^3/uL 10^3/ uL (0.8-4.8) [place] # (Auto) 0.3 10^3/uL 10^3/ uL (0.2-0.9) Eos # (Auto) 0.1 10^3/uL 10^3/ uL (0.0-0.8) Baso # (Auto) 0.0 10^3/uL 10^3/ uL (0.0-0.1) Nucleated RBC % (a uto) 0 % % Nucleated RBCs # 0.0 /100WBC /100W BC Sodium 141 mmol/L mmol/L (136-145) Potassium 4.6 mmol/L mmol/L (3.5-5.1) Chloride 103 mmol/L mmol/L (98-107) Carbon Dioxide 25 mmol/L mmol/L (22-29) Anion Gap 17.6 (5-19) BUN 15 mg/dL mg/dL (6-20) Creatinine 0.7 mg/dL mg/dL (0.5-0.9) GFR Calculation 92.2 mL/min mL/mi n (90-130) Glucose 98 mg/dL mg/dL (65-115) Calculated Osmolal ity 293 mOsm/kg mOsm/ kg (285-295) Calcium 9.2 mg/dL mg/dL (8.5-10.5) Discharge Plan Discharge Patient Disposition: Home Clinical Impression: Palpitations Condition: Stable Prescriptions: No Action prenat.vits,kacey,wml-unhc-lfyll Tablet 1 tab PO DAILY RF: 0 aspirin [Adult Aspirin Regimen] 81 mg tablet,delayed release (DR/EC) 81 mg PO DAILY RF: 0 Discharge Orders: Discharge ED (Routine); Ordered 08/10/21 Ordered By: Link Garces Referrals: Matthias Wang DO [Primary Care Provider] - Patient Instructions: Opioid Safety Activity Restrictions/Additional Instructions: change release manager will make arrangements for you to have a 48-hour Holter monitor Coding Level of Care Code ED [facility] Caretaker for Aleksey Fwd Exam Comprehensive
[2021-08-10 11:12] LABS: Basophils % 0.3 %; Eosinophils # 0.1 10^3/uL (0.0-0.8); Eosinophils % 0.9 %; Hematocrit 43.3 % (37.0-47.0); Hemoglobin 14.7 g/dL (11.5-15.3); Lymphocytes # 1.7 10^3/uL (0.8-4.8); Lymphocytes % 27.2 %; Mean Corpuscular HGB Conc 33.9 g/dL (30.0-36.0); Mean Corpuscular Hemoglobin 29.6 pg (28.0-34.0); Mean Corpuscular Volume 87.1 fl (81-99); Mean Platelet Volume 11.4 fL (7.4-10.4); Monocytes # 0.3 10^3/uL (0.2-0.9); Monocytes % 4.9 %; Neutrophils # 4.21 10^3/uL (1.8-7.7); Neutrophils % 66.5 %; Nucleated Red Blood Cells % 0 %; Platelet Count 220 10^3/cmm (130-400); Red Blood Count 4.97 10^6/uL (4.1-5.3); Red Cell Distribution Width 11.4 % (12.1-15.1); White Blood Count 6.3 10^3/uL (4.0-10.0)
[2021-08-10 11:37] LABS: Anion Gap 17.6 (5-19); Blood Urea Nitrogen 15 mg/dL (6-20); Calcium 9.2 mg/dL (8.5-10.5); Carbon Dioxide 25 mmol/L (22-29); Chloride 103 mmol/L (98-107); Glomerular Filtration Rate 92.2 mL/min (90-130); Glucose 98 mg/dL (65-115); Osmolality Calculated 293 mOsm/kg (285-295); Potassium 4.6 mmol/L (3.5-5.1); Sodium 141 mmol/L (136-145)
--- NOTE | 2021-08-13 12:34 | DCPLANNER ---
A message was left for patient to get an a 48 hour holter monitor ordered. [facility] to [facility]. Clinic will call patient with appointment information.
--- NOTE | 2021-08-14 07:25 | DCPLANNER ---
[facility] [address] [facility] for Tuesday, August 17, 2021 at 1:00 at [facility]. Clinic will call patient with appointment information.
--- NOTE | 2021-08-20 15:36 | DCPLANNER ---
Patient had an appointment scheduled for 08.17.21 with [facility] - patient did attend appointment.
== END 2021-08-10 12:40 | disposition home or self-care (01) ==
PROVIDERS: Emergency Provider Family Medicine; PCP Electrodiagnostic Medicine
DX: R00.2 Palpitations (principal); Z79.82 Long term (current) use of aspirin
CPT/HCPCS: 36415; 80048; 85025; 93005; 99283

== ENCOUNTER → 2023-01-24 15:43 | Outpatient (BNVA) | payer BC, MEDICAID, SELFPAY | PROVIDERS: PCP Electrodiagnostic Medicine; Visit Provider Obstetrics & Gynecology | DX: Z12.4 Encounter for screening for malignant neoplasm of cervix (principal); N81.10 Cystocele, unspecified; N39.3 Stress incontinence (female) (male); Z12.39 Encounter for other screening for malignant neoplasm of breast | CPT/HCPCS: 87624 ==

== ENCOUNTER → 2024-06-07 13:42 | Outpatient (BNVA) | payer BC, MEDICAID, SELFPAY | PROVIDERS: PCP Electrodiagnostic Medicine; Visit Provider Obstetrics & Gynecology | DX: Z11.3 Encounter for screening for infections with a predominantly sexual mode of transmission (principal) | CPT/HCPCS: 87491; 87591 ==

== ENCOUNTER 2025-04-29 20:16 | Emergency (ER) | payer BC, MEDICAID, SELFPAY ==
--- NOTE | 2025-04-29 20:18 | USCV_ITS ---
Glory Stafford Age: 44 Gender: F : 1980 Exam Date: 04/29/2025 20:49 Ordering Phys: Paco Chavez MD Technologist: CIARA [place] [facility] [place]: RIGHT posterior calf and thigh pain since February. 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 No hx DVT HISTORY: RIGHT posterior calf and thigh pain since February. 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 PROCEDURES: Venous duplex imaging was performed in only the right lower extremity. The following venous structures were evaluated: common femoral vein, profunda vein, proximal portion of the greater saphenous vein, superficial femoral vein, and the popliteal vein. In addition, the posterior tibial and peroneal veins were evaluated. Serial compression, augmentation maneuvers, and spectral Doppler flow evaluation were performed, which were normal. On the right side, the common femoral, superficial femoral, profunda femoral, popliteal, posterior tibial, greater saphenous veins and the peroneal veins were identified and interrogated in the standard fashion. These veins were found to be easily compressible with spontaneous blood flow. No evidence of thrombus noted. CONCLUSIONS No evidence of right lower extremity DVT. Carlos Bui MD (Electronically Signed) Final Date: 02 May 2025 09:32 S
[2025-04-29 20:21] VITALS: BP 133/83; PULSE 68; RESP 16; TEMP 36.8; O2SAT 99; BMI 22.4
--- OUTSIDE RECORDS SUMMARY | 2025-04-29 20:22 | XMS_ITS | Clinical Summary ---
Author Organization [facility] Address [address] [place] [address] [address] [place] [address] Care Team Providers Care Director Game Name Role Phone Matthias Wang Primary Care Provider [phone] Allergies No known active allergies Medications multivitamin (DAILY-JOSELUIS) tablet Take 1 Tablet by mouth daily. Active OTHER Provider please include Medication name, dose, route and frequency Active Active Problems Problem Noted Date Diagnosed Date Varicose veins of right lower extremity with kyung n 05/23/2023 Encounters Date Type Department Care Team Description 03/26/2025 External Device Data [facility] ABSTRACTION Provider, Abstract 03/12/2025 Telephone [facility] [place] [address] [place] [address] Rick Major MD Question 03/06/2025 External Device Data [facility] ABSTRACTION Provider, Abstract 03/05/2025 External Device Data [facility] ABSTRACTION Provider, Abstract 02/05/2025 External Device Data [facility] ABSTRACTION Provider, Abstract from Last 3 Months Social History Tobacco Use Types Packs/Day Years Used Date Smoking Tobacco: Never Tobacco Cessation:Counseling Given: Not Answered Feeling Safe Answer Date Recorded Are you in a relationship wi th someone who hurts you emotionally and/or physically? 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 Gender Identity Not on file Sexual Orientation Not on file Last Filed Vital Signs Vital Sign Reading Time Taken Comments Blood Pressure 122/68 06/22/2024 11:14 AM CDT Pulse 62 06/22/2024 11:14 AM CDT Temperature 36.7 C (98 F) 09/01/2023 1:30 PM CHANGE HOUSE ATTENDANT Respiratory Rate 16 06/22/2024 11:14 AM CDT Oxygen Saturation 99% 06/22/2024 11:14 AM CDT Inhaled Oxygen Concentration - - Weight 59.9 kg (132 lb) 06/22/2024 11:14 AM CDT Height 165.1 cm (5' 5 ) 06/22/2024 11:14 AM CDT Body Mass Index 21.97 06/22/2024 11:14 AM CDT Plan of Treatment Health Maintenance Due Date Last Done Comments DTAP/TDAP/TD VACCINES (1 - Tdap) 1999 HEPATITIS B VACCINES (1 of 3 - 19+ 3-dose series) 02/1999 HPV/Cotest (21-29) 2001 HPV VACCINES (1 - 3-dose SCDM series) 2007 CERVICAL CANCER SCREENING 2010 HPV/Cotest (30-65) 2010 PAP SMEAR 2010 BREAST CANCER SCREENING 2020 INFLUENZA VACCINE (#1) [address] [place] [address] [employer] [place] MEDICA[place] Advance Directives For more information, please contact: [phone] * Full Code (Latest Code Status on File) Date Activated Date Inactivated Comments 08/09/2023 8:02 AM 08/09/2023 2:02 PM Care Teams Director Game Relationship Specialty Start Date End Date Matthias Wang DO PCP - General 11/26/20
--- OUTSIDE RECORDS SUMMARY | 2025-04-29 20:22 | XMS_ITS | Clinical Summary ---
Author Organization [facility] Address [address] [place] [address] Care Team Providers Care Doctor Of Podiatric Medicine Name Role Phone Matthias Wang DO Primary Care Provider [phone] Social History Tobacco Use Types Packs/Day Years Used Date Smoking Tobacco: Never Assessed Comments Unknown Sex and Gender Information Value Date Recorded Sex Assigned at Not on file Legal Sex Female 2:42 PM CDT Gender Identity Not on file Sexual Orientation Not on file Plan of Treatment Health Maintenance Due Date Last Done Comments DTAP/TDAP/TD VACCINES (1 - Tdap) 1999 HEPATITIS B VACCINES (1 of 3 - 19+ 3-dose series) 02/1999 HPV/Cotest (21-29) 2001 HPV VACCINES (1 - 3-dose SCDM series) 2007 CERVICAL CANCER SCREENING 2010 HPV/Cotest (30-65) 2010 PAP SMEAR 2010 BREAST CANCER SCREENING 2020 INFLUENZA VACCINE (#1) 2025 Insurance [place] [place] [address] [place] [address] MEDICAID Care Teams Doctor Of Podiatric Medicine Relationship Specialty Start Date End Date Matthias Wang DO PCP - General Family Practice 10/09/20
--- OUTSIDE RECORDS SUMMARY | 2025-04-29 20:22 | XMS_ITS | Encounter Summary ---
Author Organization [facility] Address [address] [place] [address] Care Team Providers Care Nuisance Wildlife Specialist Name Role Phone Matthias Wang DO Primary Care Provider [phone] Encounter Details Date Type Department Care Team (Late st Contact Info) Description 10/09/2020 Ancillary Orders [facility] [address] [place] [address] Matthias Wang DO [address] [place] [address] Chest pain, unspecified type; Breath shortness; COVID-19 virus infection Social History Tobacco Use Types Packs/Day Years Used Date Smoking Tobacco: Never Assessed Comments Unknown Sex and Gender Information Value Date Recorded Sex Assigned at Not on file Legal Sex Female 2:42 PM CDT Gender Identity Not on file Sexual Orientation Not on file COVID-19 Exposure Response Date Recorded In the last month, have you been in contact with someone who was confirmed or suspected to have Coronavirus / COVID-19? No / Unsure 10/09/2020 9:56 AM EMPLOYMENT SPECIALIST documented as of this encounter Plan of Treatment Not on file documented as of this encounter Results * XR CHEST PA AND LATERAL 2 VW (10/09/2020 10:33 AM EMPLOYMENT SPECIALIST) Anatomical Region Laterality Modality Chest Computed Radiogr aphy 10/09/2020 10:3 4 AM EMPLOYMENT SPECIALIST Impressions 10/09/2020 4:43 PM EMPLOYMENT SPECIALIST IMPRESSION: Please see below. Exam: XR CHEST PA AND LATERAL 2 VW Date/Time of Exam: 10/09/2020 10:33 AM Reason For Exam: See Diagnosis. Diagnosis: Chest pain, unspecified type; Breath shortness; COVID-19 virus infection. Findings: There are no comparisons. The lungs are well-inflated. There is no pneumothorax. There are scattered tiny nodular densities that are most likely granulomas. The lungs are otherwise clear. The cardiomediastinal silhouette and pulmonary vessels are unremarkable. The bony thorax is grossly intact. IMPRESSION: No significant radiographic abnormality. [id number] Narrative Procedure Note Ivonne Melo MD - 10/09/2020 IMPRESSION: Please see below. Exam: XR CHEST PA AND LATERAL 2 VW Date/Time of Exam: 10/09/2020 10:33 AM Reason For Exam: See Diagnosis. Diagnosis: Chest pain, unspecified type; Breath shortness; COVID-19 virus infection. Findings: There are no comparisons. The lungs are well-inflated. There is no pneumothorax. There are scattered tiny nodular densities that are most likely granulomas. The lungs are otherwise clear. The cardiomediastinal silhouette and pulmonary vessels are unremarkable. The bony thorax is grossly intact. IMPRESSION: No significant radiographic abnormality. [id number] Matthias Wang DO DIAGNOSTIC IMAGING ORDERABLES Final Result documented in this encounter Visit Diagnoses Diagnosis Chest pain, unspecified type Breath shortness Shortness of breath COVID-19 virus infection Chest pain, unspecified type Breath shortness Shortness of breath COVID-19 virus infection documented in this encounter Care Teams Nuisance Wildlife Specialist Relationship Specialty Start Date End Date Matthias Wang DO PCP - General Family Practice 10/09/20 documented as of this encounter
--- NOTE | 2025-04-29 20:36 | ED_ITS ---
HPI - Extremity Problem General: Chief complaint: Extremity Injury, Lower Stated complaint: Possible blood clot RT leg Time Seen by Provider: 04/29/25 20:18 Source: patient Mode of arrival: ambulatory Limitations: no limitations History of Present Illness: 44-year-old female states she has been h aving right sided leg pain for the last 2 months. States she had a history of varicose veins started becomes concerned she may have a blood clot. States the pain is mild rates it 3 out of 10 denies any injuries denies any difficulty walking she denies any shortness of breath Associated symptoms: Deny chest pain, fever(s) or rash Related Data Home Medications ?Medication ?Instructions ?Recorded ?Confirmed No Known Home Medications 06/14/2405/23 Allergies Allergy/AdvReac Type Severity Reaction Status Date / Time No Known Allergies Allergy Verified 06/14/24 16:14 Review of Systems Const: Denies: fever(s), chills, body aches or change in appetite ENMT: Denies: throat pain or dental pain Card: Denies: chest pain Resp: Denies: dyspnea GI: Denies: abdominal pain, nausea, vomiting or diarrhea Musc: Reports: extremity pain; Denies: neck pain or back pain Skin/Breast: Denies: rash Neuro: Denies: headache(s) PFSH ED PFSH: Medical History No pertinent past medical history Denies diabetes, asthma, hypertension, seizures, DVT/PE PCP: Bebeto Wang Pneumonia due to 2019 novel coronavirus Surgical History History of dental surgery Family History Family/Other Breast cancer, Onset Age: 65 Paternal Aunt Mother Hypertension Diabetes Grandfather Cancer Maternal and Paternal--prostate cancer Denies family history of Ovarian cancer Heart disease Hypercholesteremia Uterine cancer Thyroid disease Stroke Social History Smoking and tobacco/nicotine status: never used tobacco/nicotine Female Reproductive History: Date of last menstrual period: 04/01/25 Physical Exam Const: COMMON NORMALS: no acute distress, patient oriented x3 and healthy appearing HENMT: COMMON NORMALS: normocephalic and atraumatic HEAD & SCALP: normocephalic and atraumatic Eye: COMMON NORMALS: conjunctivae normal CONJUNCTIVA: Yes conjunctivae normal Neck/C-Spine: COMMON NORMALS: full ROM Chest: COMMONS NORMALS: normal inspection of the chest Resp: COMMON NORMALS: normal respiratory effort Cardio: COMMON NORMALS: regular rate RATE: regular rate Extremity: NARRATIVE EXTREMITY EXAM: Exam right lower legs normal distal pulse sensation intact Neuro: COMMON NORMALS: patient oriented x3, moves all extremities and no focal motor deficits Psych: COMMON NORMALS: mental status grossly normal, Normal thought process present and cooperative THOUGHT PROCESS: Normal thought process present Skin: COMMON NORMALS: no rashes or lesions noted and no wounds GENERAL SKIN EXAM: no rashes or lesions noted Course Vital Signs: Vital signs: Vital Signs Temperature 98.3 F 04/29/25 20:21 Pulse Rate 68 04/29/25 20:21 Respiratory Rate 16 04/29/25 20:21 Blood Pressure 133/83 04/29/25 20:21 Pulse Oximetry 99 04/29/25 20:21 Oxygen Delivery Me thod Room Air 04/29/25 20:21 MDM - Extremity (Nontraumatic) Medical Decision Making Patient presents with right leg pain ultrasound here showed no signs of DVT hide exam here is benign she stable for discharge follow-up with PCP return if worsening Medical Records I reviewed the patient's medical records. All radiology interpretation(s) finalized by discharge Discharge Plan Discharge Patient Disposition: Home Clinical Impression: Leg pain, right Condition: Stable Prescriptions: No Action No Known Home Medications Discharge Orders: Discharge ED (Routine); Ordered 04/29/25 Ordered By: Paco Chavez Referrals: Matthias Wang DO [Primary Care Provider, [facility]] - 4-7 days Discharge Diet: Advance as tolerated Discharge Activity: Resume usual activity Patient Instructions: Leg Pain (ED) Print Language: American Coding Level of Care Code ED Bullet Lubricating Machine Operator for Aleksey Emery
== END 2025-04-29 21:11 | disposition home or self-care (01) ==
PROVIDERS: Emergency Provider Emergency Medicine; PCP Electrodiagnostic Medicine
DX: M79.604 Pain in right leg (principal)
CPT/HCPCS: 93971; 99284